=== PATIENT | female | born 1945 | race Caucasian/White ===

== ENCOUNTER 2018-11-25 12:26 | Emergency (ER) | payer MEDICARE ==
[~2018-11-25] VITALS: Ht 154.9 cm; Wt 99.8 kg
--- OUTSIDE RECORDS SUMMARY | 2018-11-25 12:29 | XMS REPORT ---
Author Author [facility] Address Unknown Phone Unavailable Care Team Providers Care Diffuser Operator Name Role Phone ABELINO OCHOA PP Unavailable Ramila OCHOA Unavailable Unavailable Payers Payer Name Policy Type Policy Number Effective Date Expiration Date Problems This patient has no known problems. Allergies, Adverse Reactions, Alerts Allergy Name Allergy Type Status Severity Reaction(s) Onset Date Inactive Date Treating Clinician Comments diazepam DA Active U 2018-11-23 00:00:00 cefaclor DA Active U 2018-11-23 00:00:00 adhesive tape DA Active U 2018-11-23 00:00:00 diazepam DA Active U 2018-08-29 00:00:00 cefaclor DA Active U 2018-08-29 00:00:00 adhesive tape DA Active U 2018-08-29 00:00:00 diazepam DA Active U 2011-04-03 00:00:00 cefaclor DA Active U 2011-04-03 00:00:00 adhesive tape DA Active U 2011-04-03 00:00:00 Medications This patient has no known medications. Encounters Start Date/Time End Date/Time Encounter Type Admission Type Attending Clinicians Care Facility Care Department Encounter ID 2017-06-21 18:57:00 2017-06-21 18:57:00 Outpatient JOCE KEITH [facility] [id number] 2017-06-21 11:29:00 2017-06-21 11:29:00 Outpatient Petar [facility] [id number] 2017-04-17 22:06:00 2017-04-17 22:06:00 Outpatient JOCE KEITH [facility] [id number] 2017-03-27 10:09:00 2017-03-27 10:09:00 Outpatient C [facility] MED [id number] Results Test Description Test Time Test Comments Text Results Atomic Results Result Comments PROTHROMBIN TIME 2018-11-23 22:36:00 PROTHROMBIN TIME PATIENT (test code=PTP) 13.0 SECONDS 9.3-12.9 INTERNATIONAL NORMAL RATIO (test code=INR) 1.2 0.8-1.2 TARGET INR BY INDICATION Indication INR1. Prophylaxis of venous thrombosis 2.0 - 3.0 (orthopedic surgery), Prophylaxis of venous thrombosis (other than high-risk surgery), Treatment of Deep Vein Thrombosis/Pulmonary Embolism, Prevention of systemic embolism - Tissue heart valves, Acute Myocardial Infarction (to prevent systemic embolism), Valvular heart disease, Atrial Fibrillation, Bileaflet mechanical valve in aortic position.2. Mechanical prosthetic valves (high risk), 2.5 - 3.5 Presence of Lupus Anticoagulant or Antiphospholipid Antibodies, Prevention of systemic embolism - Acute Myocardial Infarction (to prevent recurrent infarct). THROMBOPLASTIN TIME [id number] 22:36:00* Test Item Value Reference Range Comments THROMBOPLASTIN TIME PARTIAL (test code=PTT) 29.0 Seconds 25.0-39.5 Therapeutic Range: 50.4 - 88.3 Seconds Effective 09/16/2018 [id number] 22:36:00* Test Item Value Reference Range Comments D-DIMER (test code=DDIMER) 380 ng/mlFEU <=500 THROMBOSIS AND/OR PULMONARY EMBOLISM AND THE CLINICAL CUT- OFF VALUE FOR EXCLUSION (500 ng/mL FEU) OF THESE CONDITIONSIS VALIDATED BY THE PROFESSOR OF MARKETING OF THE METHOD. A NEGATIVE D-DIMER RESULT WHEN COMBINED WITH A CLINICALASSESSMENT OF LOW PRETEST PROBABILITY HAS BEEN SHOWN TO HAVEA HIGH NEGATIVE PREDICTIVE VALUE OF DVT OR PE. D-DIMER VALUES >500 ng/mL FEU ARE NOT DIAGNOSTIC FOR DVT, PEor DIC WITHOUT OTHER CONFIRMATORY TESTS AND APPROPRIATECLINICAL EUALUATIONS. COMPREHENSIVE METABOLIC [id number] 22:15:00* Test Item Value Reference Range Comments SODIUM (test code=NA) 140 mEq/L 134-147 POTASSIUM (test code=K) 4.4 mEq/L 3.4-5.0 CHLORIDE (test code=CL) 109 mEq/L 100-108 CARBON DIOXIDE (test code=CO2) 27 mEq/L 21-33 ANION GAP (test code=GAP) 8 0-20 GLUCOSE (test code=GLU) 98 mg/dL 70-110 BLOOD UREA NITROGEN (test code=BUN) 23 mg/dL 7-18 GLOMERULAR FILTRATION RATE (test code=GFR) 70.3 70-80 Units of measure=ml/min/1.73 m2 CREATININE (test code=CREAT) 0.8 mg/dL 0.6-1.3 TOTAL PROTEIN (test code=PROT) 7.1 g/dL 6.4-8.2 ALBUMIN (test code=ALB) 3.00 g/dL 3.4-5.0 CALCIUM (test code=CA) 8.7 mg/dL 8.0-10.5 BILIRUBIN TOTAL (test code=BILT) 0.20 mg/dL 0.0-1.0 SGOT/AST (test code=AST) 13 IUnit/L 15-37 SGPT/ALT (test code=ALT) 21 IUnit/L 15-65 ALKALINE PHOSPHATASE TOTAL (test code=ALKP) 81 IUnit/L 20-125 [id number] 22:15:00* Test Item Value Reference Range Comments LIPASE (test code=LIP) 197 IUnit/L 73-393 [id number] 22:15:00* Test Item Value Reference Range Comments MAGNESIUM (test code=MAG) 2.00 mg/dL 1.8-2.4 THYROID STIMULATING [id number] 22:15:00* Test Item Value Reference Range Comments THYROID STIMULATING HORMONE (test code=TSH) 1.78 0.42-5.47 Results in stephen-International Units/mL [id number] 22:15:00* Test Item Value Reference Range Comments TROPONIN-I (test code=TROPI) < 0.015 ng/mL 0.000-0.045 Negative: <=0.045 Positive: >=0.046 Correlation with serial results, other cardiac markers andclinical findings is necessary to determine the clinicalsignificance of this result. Results using different methodologies should not be comparedto one another as quantitative results may vary by method. B-TYPE NATRIURETIC [id number] 22:15:00* Test Item Value Reference Range Comments B-TYPE NATRIURETIC PEPTIDE (test code=BNP) 211.5 PG/ML 0-100 COMPREHENSIVE METABOLIC [id number] 22:10:00* Test Item Value Reference Range Comments SODIUM (test code=NA) 140 mEq/L 134-147 POTASSIUM (test code=K) 4.4 mEq/L 3.4-5.0 CHLORIDE (test code=CL) 109 mEq/L 100-108 CARBON DIOXIDE (test code=CO2) 27 mEq/L 21-33 ANION GAP (test code=GAP) 8 0-20 GLUCOSE (test code=GLU) 98 mg/dL 70-110 BLOOD UREA NITROGEN (test code=BUN) 23 mg/dL 7-18 GLOMERULAR FILTRATION RATE (test code=GFR) 70.3 70-80 Units of measure=ml/min/1.73 m2 CREATININE (test code=CREAT) 0.8 mg/dL 0.6-1.3 TOTAL PROTEIN (test code=PROT) 7.1 g/dL 6.4-8.2 ALBUMIN (test code=ALB) 3.00 g/dL 3.4-5.0 CALCIUM (test code=CA) 8.7 mg/dL 8.0-10.5 BILIRUBIN TOTAL (test code=BILT) 0.20 mg/dL 0.0-1.0 SGOT/AST (test code=AST) 13 IUnit/L 15-37 SGPT/ALT (test code=ALT) 21 IUnit/L 15-65 ALKALINE PHOSPHATASE TOTAL (test code=ALKP) 81 IUnit/L 20-125 [id number] 22:10:00* Test Item Value Reference Range Comments LIPASE (test code=LIP) 197 IUnit/L 73-393 [id number] 22:10:00* Test Item Value Reference Range Comments MAGNESIUM (test code=MAG) 2.00 mg/dL 1.8-2.4 THYROID STIMULATING [id number] 22:10:00* Test Item Value Reference Range Comments THYROID STIMULATING HORMONE (test code=TSH) 0.42-5.47 [id number] 22:10:00* Test Item Value Reference Range Comments TROPONIN-I (test code=TROPI) < 0.015 ng/mL 0.000-0.045 Negative: <=0.045 Positive: >=0.046 Correlation with serial results, other cardiac markers andclinical findings is necessary to determine the clinicalsignificance of this result. Results using different methodologies should not be comparedto one another as quantitative results may vary by method. CBC W/AUTO [id number] 21:44:00* Test Item Value Reference Range Comments WHITE BLOOD CELL (test code=WBC) 8.80 x10 3/uL 4.5-11.0 RED BLOOD CELL (test code=RBC) 3.93 x10 6/uL 3.54-5.02 HEMOGLOBIN (test code=HGB) 11.0 g/dL 11.0-15.0 HEMATOCRIT (test code=HCT) 35.6 % 33.0-45.0 MEAN CELL VOLUME (test code=MCV) 90.6 fL 81.0-99.0 MEAN CELL HGB (test code=MCH) 28.0 pg 27.0-33.0 MEAN CELL HGB CONCETRATION (test code=MCHC) 30.9 g/dL 33.0-37.0 RED CELL DISTRIBUTION WIDTH CV (test code=RDW) 16.2 % 11.5-14.5 RED CELL DISTRIBUTION WIDTH SD (test code=RDW-SD) 54.1 fL 37.0-54.0 PLATELET COUNT (test code=PLT) 271 x10 3/uL 150-400 MEAN PLATELET VOLUME (test code=MPV) 10.7 fL 7.0-9.0 NEUTROPHIL % (test code=NT%) 58.2 % 56.0-77.0 IMMATURE GRANULOCYTE % (test code=IG%) 0.5 % 0.0-2.0 LYMPHOCYTE % (test code=LY%) 25.3 % 14.0-32.0 MONOCYTE % (test code=MO%) 11.3 % 4.8-9.0 EOSINOPHIL % (test code=EO%) 3.9 % 0.3-3.7 BASOPHIL % (test code=BA%) 0.8 % 0.0-2.0 NUCLEATED RBC % (test code=NRBC%) 0.0 % 0-0 NEUTROPHIL # (test code=NT#) 5.13 x10 3/uL 2.0-7.6 IMMATURE GRANULOCYTE # (test code=IG#) 0.04 x10 3/uL 0.00-0.03 LYMPHOCYTE # (test code=LY#) 2.23 x10 3/uL 1.0-3.8 MONOCYTE # (test code=MO#) 0.99 x10 3/uL 0.1-0.8 EOSINOPHIL # (test code=EO#) 0.34 x10 3/uL 0.0-0.2 BASOPHIL # (test code=BA#) 0.07 x10 3/uL 0.0-0.2 NUCLEATED RBC # (test code=NRBC#) 0.00 x10 3/uL 0.0-0.1 MANUAL DIFF REQUIRED (test code=MDIFF) NO - XR CHEST 1 [id number] 21:23:00 FAX: Faina Rogers MD [phone] [place]: St: [facility] FAX: Ibrahima Vega MD [phone] Name: PAT COURTNEY [facility] : 1945 Age/S: 73/F [address] [place] [address] Unit #: [id number] Loc: [place] [address] Phys: Ibrahima Vital MD Acct: [id number] Dis Date: Status: REG ER PHONE #: [phone] Exam Date: 11/23/20182051 FAX #: [phone] Reason: SOB EXAMS: CPT CODE: [id number] XR CHEST 1 V [id number] XR CHEST 1 VIEW HISTORY: SOB. COMPARISON: 11/23/2009. FINDINGS: Cardiomegaly with mild vascular congestion. No consolidation or definite pleural fluid. Other than degenerative changes, the bones are intact. Old posterior rib fracture at the right mid chest. IMPRESSION: Cardiomegaly and mild vascular congestion. Correlate for evidence of CHF. SL: JAZZMINE at 2123 Reported and signed by: Bill Saenz M.D. CC: Faina Jones; Ibrahima Vital MD Technologist: BHUPINDER Jernigan RT(R) Trnscrd Date/Time/By: 11/23/2018 (2122) : By: HaydenLS1 Orig Print D/T: S: 11/23/2018 (2125) PAGE 1 Signed Report MG Bone Density Dexa [id number] 09:51:43Patient: PAT COURTNEY Date/Time04/14/2018 08:48 CSTReason for ExamC50.919ReportHISTORY: Screening, at risk for osteoporosisLocation code: I74HWWD: DEXA bone densitometry.COMPARISON: 03/27/2017TECHNIQUE: DEXA bone densitometry was performed of lumbar spine and right hip.FINDINGS:RIGHT PROXIMAL FEMUR:Total bone mineral density: 0.805 gm/cm 2; (previously 0.826gm/cm2)Total T-score: -1.23; (previously -1.05)T score in th e femoral neck: -2.64; (previously -2.91)LUMBAR SPINE:Total bone mineral density : 0.958 gm/cm2; (previously 1.017gm/cm2)Total T-score: -1.23; (previously -0.89) According to World Health Organization guidelines, bone mineral density as deter mined by T-score of -2.64 in the right femoral neck is in the range of osteoporo sis. Fracture risk is high.IMPRESSION: Bone mineral density is in the range of o steoporosis. Fracture risk is high and treatment, if not already being performed , should be instituted with followup DEXA scan recommended in one year. Since p rior exam bone mineral density has decreased in right femur and lumbar spine. World Health Org anization criteria:Normal: T-score at or above -1.0 standard deviationOsteopeni a: T-score between -1.0 and -2.5Osteoporosis: T-score at or below -2.5 Fi nal Dictated by: Avani Vee LDictated DT/TM: 04/15/2018 9:49 amSigned by: Avani Vee LSigned (Electronic Signature): 04/15/2018 9:51 amMG Mammo Digital Diagnostic [id number] 11:02:02Patient: PAT COURTNEY Date/Time04/14/2018 09:00 CSTReason for ExamC50.919ReportLocation R 16LEFT UNILATERAL DIAGNOSTIC MAMMOGRAM WITH CADHistory: 72 year-old female who presents for diagnostic mammogram. History of right mastectomy for breast cancer. Left breast reduction surgery as well.Left diagnostic mammogram with computer assisted diagnosis was performed and compared to multiple prior studies dating as far back as 05/21/2008 with most recent prior study dated 03/27/2017 .CC, exaggerated CC, ML AND MLO views of the the left breast were obtained and interpreted.There are scattered areas of fibroglandular density.No evidence of new dominant mass, asymmetry, architectural distortion or suspicious microcalcifications is seen. Stable scar along the 6:00 axis of the left breast.Impression:No mammographic evidence of malignancy.RECOMMENDATIONS: FOLLOW-UP MAMMOGRAM IN ONE YEAR IN THE ABSENCE OF CLINICAL FINDINGS.BI-RADS CATEGORY 2: Benign Final Dictated by: MD Sanchez Eniola FDictated DT/TM: 04/14/2018 10:55 amSigned by: MD Sanchez Eniola FSigned (Electronic Signature): 04/14/2018 11:02 am Comprehensive Metabolic [id number] 21:21:00* Test Item Value Reference Range Comments Sodium (test code=NA) 141 mmol/L 135-145 Potassium (test code=K) 4.0 mmol/L 3.5-5.1 Chloride (test code=CL) 102 mmol/L 98-105 Carbon Dioxide (test code=CO2) 29 mmol/L 22-29 Glucose (test code=GLU) 172 mg/dL 70-115 Blood Urea Nitrogen (test code=BUN) 15 mg/dL 8-23 Creatinine (test code=CREAT) 0.9 mg/dL 0.5-0.9 Calcium (test code=CA) 9.3 mg/dL 8.3-10.5 Prot Total (test code=TP) 7.1 g/dL 6.4-8.3 Albumin (test code=ALB) 4.0 g/dL 3.5-5.2 A/G Ratio (test code=AGRATIO) 1.3 Ratio Globulin (test code=GLOB) 3.1 2.9-3.1 Bili Total (test code=TBIL) 0.3 mg/dL 0.1-0.9 Alk Phos (test code=APHOS) 65 U/L 35-104 AST (test code=AST) 13 U/L 1-32 ALT (test code=ALT) 17 U/L 1-33 BUN/Creatinine Ratio (test code=BCRATIO) 16.7 Anion Gap (test code=AGAP) 10 mmol/L 7-16 Estimated GFR (test code=GFR) >60 mL/min/1.73m2 eGFR (estimated Glomerular Filtration Rate) is an estimated value,calculated from the patient's serum creatinine using the MDRD equation.It is NOT the patient's actual GFR. The eGFR provides a more clinicallyuseful measure of kidney disease than serum creatinine alone.This calculation takes sex and race into account, if the informationis provided. If the race is not provided, and the patient isAfrican-Norwegian, multiply by 1.212. If sex is not provided, and thepatient is female, multiply by 0.742. Results for patients <18 years ofage have not been validated by the MDRD study and should be interpretedwith caution.eGFR Result Interpretation:eGFR > or=60 is in the Normal RangeeGFR < 60 may mean kidney diseaseeGFR < 15 may mean kidney failureRanges recommended by the National Kidney Foundat ion,http://nkdep.nih.gov XR CHEST JOAQUIN Crisostomo/[id number] 12:15:26EXAM: Chest x-ray, 2 viewsLOCATION: [id number]: Chest radiograph 11/22/2014INDICATION: J01.90: ACUTE SINUSITIS, UNSPECIFIEDDISCUSSION:PA and lateral chest radiographs were submitted for interpretation.No consolidation, pleural effusion, or pneumothorax is seen. The cardiomediastinal silhouette is within normal limits. Mild aortic calcifications are present.No acute osseous abnormalities are identified. There is a stable linear density (catheter fragment?) over the anteriorthoracic inlet.IMPRESSION:No acute cardiopulmonary abnormalities.CA [id number] 14:58:00* Test Item Value Reference Range Comments CA 27.29 (test xxix=[id number]) 13.8 U/mL 0.0-38.6 Veronica Centaur/ACS methodology CA 15-3 (Serial Monitor)2017-04-18 11:32:00* Test Item Value Reference Range Comments Cancer Antigen 15-3 (test vlrq=LE658) 6.9 U/mL 1.0-25.1 Comprehensive Metabolic [id number] 22:57:00* Test Item Value Reference Range Comments Sodium (test code=NA) 140 mmol/L 135-145 Potassium (test code=K) 4.1 mmol/L 3.5-5.1 Chloride (test code=CL) 100 mmol/L 98-105 Carbon Dioxide (test code=CO2) 28 mmol/L 22-29 Glucose (test code=GLU) 152 mg/dL 70-115 Blood Urea Nitrogen (test code=BUN) 16 mg/dL 8-23 Creatinine (test code=CREAT) 0.9 mg/dL 0.5-0.9 Calcium (test code=CA) 10.1 mg/dL 8.3-10.5 Prot Total (test code=TP) 6.7 g/dL 6.4-8.3 Albumin (test code=ALB) 4.0 g/dL 3.5-5.2 A/G Ratio (test code=AGRATIO) 1.5 Ratio Globulin (test code=GLOB) 2.7 2.9-3.1 Bili Total (test code=TBIL) 0.3 mg/dL 0.1-0.9 Alk Phos (test code=APHOS) 74 U/L 35-104 AST (test code=AST) 13 U/L 1-32 ALT (test code=ALT) 18 U/L 1-33 BUN/Creatinine Ratio (test code=BCRATIO) 17.8 Anion Gap (test code=AGAP) 12 mmol/L 7-16 Estimated GFR (test code=GFR) >60 mL/min/1.73m2 eGFR (estimated Glomerular Filtration Rate) is an estimated value,calculated from the patient's serum creatinine using the MDRD equation.It is NOT the patient's actual GFR. The eGFR provides a more clinicallyuseful measure of kidney disease than serum creatinine alone.This calculation takes sex and race into account, if the informationis provided. If the race is not provided, and the patient isAfrican-Norwegian, multiply by 1.212. If sex is not provided, and thepatient is female, multiply by 0.742. Results for patients <18 years ofage have not been validated by the MDRD study and should be interpretedwith caution.eGFR Result Interpretation:eGFR > or=60 is in the Normal RangeeGFR < 60 may mean kidney diseaseeGFR < 15 may mean kidney failureRanges recommended by the National Kidney Foundat ion,http://nkdep.nih.gov XR BONE DENSITY (DXA)-[id number] 11:32:52BONE MINERAL DENSITY EXAM:LOCATION: 16 CLINICAL HISTORY: Postmenopausal. M81.8: OTHER OSTEOPOROSIS WITHOUTCURRENT PATHOLOGICAL FRACTURE.COMPARISON: Mar 23, 2016.Technique: Bone Mineral Density evaluation of the lumbar spine and righthip was performed using a DEXA system.FINDINGS:The results of the study expressed as bone mineral density (BMD) were asfollows:Scan performed: Lumbar spine BMD patient (gm/cm2): 1.017 T-score: -0.89WHO classification: Normal.Scan performed: Right femoral neck BMD patient (gm/cm2): 0.646 T-score: -2.9WHO classification: Osteoporotic.Scan performed: Total Right Hip BMD patient (gm/cm2): 0.826 T- score: -1.05WHO classification: Osteopenia.Since the prior exam, the bone bank examiner al density has slightly improved inthe lumbar spine that has decreased within e right hip.IMPRESSION:1. Osteoporosis according to WHO classification placing t he patient atsignificant increased risk of an osteoporotic fracture compared to theyoung adult population.World Health Organization (WHO) CriteriaNormal: T-scor e at or above -1 SDOsteopenia: T-score between -1 and -2.5 SDOsteoporosis: T-sco re at or below -2.5 SDMAM MAMMO DIAGNOSTIC UNI [id number]-[id number] 11:11:05 PROCEDURE: TERRI MAMMO DIAGNOSTIC UNI W/CAD-LEFTLOCATION : R 16HISTORY: C50.919: M ALIGNANT NEOPLASM OF UNSP SITE OF UNSPECIFIED FEMALEBREASTCOMPARISON: Mar 23 16, Mar 23, 2015, Mar 02, 2014 and Mar 02, 2013.Left CC, MLO, ML and exaggerated CC mammographic views were obtained.Computer aided detection (CAD) utilizing iC AD technology was performedand reviewed.FINDINGS: The breasts are composed of he terogeneously dense fibroglandular tissuewhich limits the sensitivity of mammogr aphy. The appearance of the fibroglandular tissue is unchanged. No dominantmass or suspicious microcalcification is present. IMPRESSION: There is no mammograph ic evidence of malignancy. Routine annualscreening mammogram is recommended.ACR BI-RADS CATEGORY: 2-BENIGN. RECOMMENDATION: FOLLOW UP MAMMOGRAM IN ONE YEAR.A . A negative x-ray report should not delay biopsy of a dominant orclinically rios spicious palpable mass.B. 8-14% of cancers are not identified by x-ray. This is becauseadenosis or dense breasts may obscure a breast cancer on mammography. Th is is why breast self-exam is important.C. A negative report may reinforce clin ical impression.D. False positive reports average 6-10%. Routine annual mammogr aphicfollow-up recommended.Comprehensive Metabolic [id number] 18:42:00* Test Item Value Reference Range Comments Sodium (test code=NA) 139 mmol/L 135-145 Potassium (test code=K) 4.6 mmol/L 3.5-5.1 Chloride (test code=CL) 102 mmol/L 98-105 Carbon Dioxide (test code=CO2) 26 mmol/L 22-29 Glucose (test code=GLU) 160 mg/dL 70-115 Blood Urea Nitrogen (test code=BUN) 16 mg/dL 8-23 Creatinine (test code=CREAT) 0.9 mg/dL 0.5-0.9 Calcium (test code=CA) 9.6 mg/dL 8.3-10.5 Prot Total (test code=TP) 7.3 g/dL 6.4-8.3 Albumin (test code=ALB) 4.0 g/dL 3.5-5.2 A/G Ratio (test code=AGRATIO) 1.2 Ratio Globulin (test code=GLOB) 3.3 2.9-3.1 Bili Total (test code=TBIL) 0.3 mg/dL 0.1-0.9 Alk Phos (test code=APHOS) 55 U/L 35-104 AST (test code=AST) 16 U/L 1-32 ALT (test code=ALT) 21 U/L 1-33 BUN/Creatinine Ratio (test code=BCRATIO) 17.8 Anion Gap (test code=AGAP) 11 mmol/L 7-16 Estimated GFR (test code=GFR) >60 mL/min/1.73m2 eGFR (estimated Glomerular Filtration Rate) is an estimated value,calculated from the patient's serum creatinine using the MDRD equation.It is NOT the patient's actual GFR. The eGFR provides a more clinicallyuseful measure of kidney disease than serum creatinine alone.This calculation takes sex and race into account, if the informationis provided. If the race is not provided, and the patient isAfrican-Norwegian, multiply by 1.212. If sex is not provided, and thepatient is female, multiply by 0.742. Results for patients <18 years ofage have not been validated by the MDRD study and should be interpretedwith caution.eGFR Result Interpretation:eGFR > or=60 is in the Normal RangeeGFR < 60 may mean kidney diseaseeGFR < 15 may mean kidney failureRanges recommended by the National Kidney Foundat ion,http://nkdep.nih.gov Comprehensive Metabolic [id number] 21:46:00* Test Item Value Reference Range Comments Sodium (test code=NA) 141 mmol/L 135-145 Potassium (test code=K) 4.2 mmol/L 3.5-5.1 Chloride (test code=CL) 99 mmol/L 98-105 Carbon Dioxide (test code=CO2) 28 mmol/L 22-29 Glucose (test code=GLU) 130 mg/dL 70-115 Blood Urea Nitrogen (test code=BUN) 22 mg/dL 8-23 Creatinine (test code=CREAT) 1.0 mg/dL 0.5-0.9 Calcium (test code=CA) 9.9 mg/dL 8.3-10.5 Prot Total (test code=TP) 6.6 g/dL 6.4-8.3 Albumin (test code=ALB) 3.9 g/dL 3.5-5.2 A/G Ratio (test code=AGRATIO) 1.4 Ratio Globulin (test code=GLOB) 2.7 2.9-3.1 Bili Total (test code=TBIL) 0.2 mg/dL 0.1-0.9 Alk Phos (test code=APHOS) 72 U/L 35-104 AST (test code=AST) 13 U/L 1-32 ALT (test code=ALT) 23 U/L 1-33 BUN/Creatinine Ratio (test code=BCRATIO) 22.0 Anion Gap (test code=AGAP) 14 mmol/L 7-16 Estimated GFR (test code=GFR) 58 mL/min/1.73m2 eGFR (estimated Glomerular Filtration Rate) is an estimated value,calculated from the patient's serum creatinine using the MDRD equation.It is NOT the patient's actual GFR. The eGFR provides a more clinicallyuseful measure of kidney disease than serum creatinine alone.This calculation takes sex and race into account, if the informationis provided. If the race is not provided, and the patient isAfrican-Norwegian, multiply by 1.212. If sex is not provided, and thepatient is female, multiply by 0.742. Results for patients <18 years ofage have not been validated by the MDRD study and should be interpretedwith caution.eGFR Result Interpretation:eGFR > or=60 is in the Normal RangeeGFR < 60 may mean kidney diseaseeGFR < 15 may mean kidney failureRanges recommended by the National Kidney Foundat ion,http://nkdep.nih.gov
--- OUTSIDE RECORDS SUMMARY | 2018-11-25 12:29 | XMS REPORT | Clinical Summary ---
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 Active multivitamin with Take 1 tablet 0 minerals tablet by mouth daily. 10/01/2019 Active triamcinolone (KENALOG) Apply 30 g 0 0.1 % creamIndications: topically 2 9 Dermatitis due to unknown (two) times a cause day. 10/30/2019 Active telmisartan (MICARDIS) 80 Take 1 tablet 30 tablet 2 MG tabletIndications: (80 mg total) 9 Essential hypertension by mouth daily. 10/30/2019 Active carvedilol (COREG) 12.5 Take 1 tablet 60 tablet 0 MG tabletIndications: (12.5 mg 9 Essential hypertension total) by mouth 2 (two) times a day with meals. 10/23/2018 Discontinued metoprolol succinate XL 0 (TOPROL-XL) 25 mg 24 hr 9 tablet 10/01/2018 Discontinued traMADol (ULTRAM) 50 mg 0 tablet 9 10/23/2018 Discontinued azilsartan Take 1 tablet 0 med-chlorthalidone by mouth. (EDARBYCLOR) 40-12.5 mg tablet 10/31/2018 traMADol (ULTRAM) 50 mg Take 1 tablet 60 tablet 0 tabletIndications: (50 mg total) 9 Primary osteoarthritis of by mouth left knee every 8 (eight) hours as needed for moderate pain for up to 30 days. 10/30/2018 Discontinued azilsartan Take 1 tablet 30 tablet 2 med-chlorthalidone 40-25 by mouth 9 mg tablet daily. 10/30/2018 Discontinued metoprolol succinate XL Take 1 tablet 30 tablet 2 (TOPROL XL) 50 mg 24 hr (50 mg total) 9 tablet by mouth daily for 90 days. Active Problems Problem Noted Date BMI 40.0-44.9, adult 10/01/2018 Encounters Care Team Description Date Type Specialty Radha Turcios 11/25/2018 Telephone Family Medicine Rica Burton RN 11/24/2018 Telephone Access Rica Burton RN 11/24/2018 Nurse Triage Access Faina Jones MD 10/31/2018 Telephone Family Medicine Faina Jones MD Essential hypertension (Primary Dx) 10/30/2018 Office Visit Family Medicine Faina Jones MD 10/29/2018 Telephone Family Medicine SamaniegoElba Ch MA 10/23/2018 Refill Family Medicine Faina Jones MD Essential hypertension (Primary Dx); Primary osteoarthritis of left knee; Age-related osteoporosis without current pathological fracture; Dermatitis due to unknown cause 10/01/2018 Office Visit Family Medicine after 11/24/2017 Family History Medical History Relation Name Comments Hernia Father Uterine cancer Mother Relation Name Status Comments Father Mother Social History Date Tobacco Use Types Packs/Day Years Used Former Smoker Smokeless Tobacco: Never Used Alcohol Use Drinks/Week oz/Week Comments Yes 0 Cans of 0.0 2 time a yr beer 0 Shots of liquor 0 Glasses of wine 0 Standard drinks or equivalent Sex Assigned at Date Recorded Not on file Industry Job Start Date Occupation Not on file Not on file Not on file Travel End Travel History Travel Start No recent travel history available. Last Filed Vital Signs Time Taken Vital Sign Reading 10/30/2018 2:17 PM CDT Blood Pressure 152/58 10/30/2018 1:33 PM CDT Pulse 51 10/30/2018 1:33 PM CDT Temperature 36.7 C (98.1 F) 10/30/2018 1:33 PM CDT Respiratory Rate 18 10/30/2018 1:33 PM CDT Oxygen Saturation 96% - Inhaled Oxygen - Concentration 10/30/2018 1:33 PM CDT Weight 99 kg (218 lb 3.2 oz) 10/30/2018 1:33 PM CDT Height 154.9 cm (5' 1") 10/30/2018 1:33 PM CDT Body Mass Index 41.23 Plan of Treatment Care Team Description Date Type Specialty Faina Jones MD [address] [place] [address] [place] [id number] [phone] 11/26/2018 Office Visit Family Medicine Health Maintenance Due Date Last Done Comments INFLUENZA VACCINE 01/01/2019 COLONOSCOPY SCREENING 03/06/2019 Postponed from 1995 (Patient Refused) SHINGLES VACCINES (#1) 04/03/2019 Postponed from 1995 (Patient Refused) 65+ PNEUMOCOCCAL VACCINE 05/08/2019 Postponed from 2010 (1 of 2 - PCV13) (Patient Refused) BREAST CANCER SCREENING 05/06/2020 05/06/2018 Results Not on fileafter 11/24/2017 Insurance Type Payer Benefit Subscriber ID Effective Phone Address Plan / Dates Group Medicare MEDICARE MEDICARE xxxxxxxxxxx 2012- [place], PART A AND Present [place] Commercial AAR AAR xxxxxxxxxxx [id number] SUPPLEMENT resent Advance Directives Patient has advance care planning documents on file. For more information, clarence garvin contact: Benoit Ibarra [address] [place] [address]
[2018-11-25] MEDS ORDERED: HYDRALAZINE HCL 20 MG/ML VIAL IV STA (12:48)
--- NOTE | 2018-11-25 13:43 | Diagnostic Imaging Report ---
CT BRAIN WO HISTORY: High blood pressure COMPARISON: None. Technique: Noncontrast axial scans were obtained from skull base to the vertex. Coronal and sagittal reconstructions obtained from the axial data. One or more of the following dose reduction techniques were used: Automated exposure control, adjustment of the mA and/or kV according to patient size, and/or utilization of iterative reconstruction technique. DISCUSSION: Scalp/Skull: Unremarkable. Brain sulci: Mildly prominent. Ventricles: Compensatory dilatation. Extra-axial spaces: No masses or fluid collections. Carotid siphon calcifications are present. Parenchyma: Mild bilateral deep white matter hypodensity is likely chronic microvascular ischemic change. Associated old bilateral jansen radiata and right cerebellar lacunar infarcts are present. Left parieto-occipital convexity encephalomalacia is likely from remote infarct. Otherwise, no masses, hemorrhage, or large vascular territory acute infarct. Dural sinuses: No abnormal densities. Sellar/Suprasellar region: Intact. Skull base: Intact. Incidental findings: Both ocular lenses are thinned. IMPRESSION: 1. No acute intracranial abnormalities. 2. Mild supratentorial chronic microvascular ischemic change. Mild generalized cerebral volume loss. 3. 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 4. 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 Signed by: Dr. Luis Fernando Ramirez M.D. on 11/25/2018 1:40 PM
--- NOTE | 2018-11-25 13:50 | Diagnostic Imaging Report ---
EXAM: CHEST SINGLE (PORTABLE), PA and lateral DATE: 11/25/2018 Time stamp on exam: 1:04 PM INDICATION: Elevated blood pressure and chest pain COMPARISON: None FINDINGS: LINES/TUBES: A portion of a wire overlies the mediastinum. This is uncertain whether this is external to the patient. It does follow a course they could be within the innominate vein. LUNGS: No consolidations or edema. PLEURA: No effusions or pneumothorax. HEART AND MEDIASTINUM: Normal size and contour. BONES AND SOFT TISSUES: No acute findings. IMPRESSION: No acute thoracic abnormality. Signed by: Dr. Daryl Antoine DO on 11/25/2018 1:46 PM
[2018-11-25 14:27] LABS: BASOPHILS # (AUTO) 0.1 (0.0-0.1); BASOPHILS % 0.6 % (0.0-1.0); EOSINOPHILS # (AUTO) 0.2 (0.0-0.4); EOSINOPHILS % 2.6 % (0.0-6.0); HEMATOCRIT 34.4 % (34.2-44.1); HEMOGLOBIN 10.9 g/dL (12.0-16.0); LYMPHOCYTES # (AUTO) 1.8 (1.0-3.2); LYMPHOCYTES % 21.5 % (18.0-39.1); MEAN CORPUSCULAR HGB CONC 31.7 g/dL (31-35); MEAN CORPUSCULAR VOLUME 88.4 fL (81-99); MONOCYTES # (AUTO) 0.9 (0.2-0.8); NEUTROPHILS # (AUTO) 5.4 (2.1-6.9); NEUTROPHILS % 64.1 % (38.7-80.0); PLATELET COUNT 265 x10e3/uL (140-360); RED BLOOD COUNT 3.89 x10e6/uL (3.6-5.1)
[2018-11-25 14:33] LABS: INR 1.05; PROTHROMBIN TIME 14.2 seconds (11.9-14.5)
[2018-11-25 14:34] LABS: PARTIAL THROMBOPLASTIN TIME 27.5 seconds (23.8-35.5)
[2018-11-25 14:45] LABS: ALANINE AMINOTRANSFERASE 16 IU/L (0-55); ALBUMIN 3.1 g/dL (3.5-5.0); ALBUMIN/GLOBULIN RATIO 1.1 (0.8-2.0); ALKALINE PHOSPHATASE 77 IU/L (40-150); BLOOD UREA NITROGEN 13 mg/dL (7-26); BUN/CREATININE RATIO 16 (6-25); CALCIUM 8.7 mg/dL (8.4-10.2); CARBON DIOXIDE 23 mmol/L (22-29); CHLORIDE 107 mmol/L (98-107); CREATINE KINASE 56 IU/L (29-168); EST GLOMERULAR FILTRATION RATE > 60 ML/MIN (60-); GLUCOSE 121 mg/dL (74-118); SODIUM 139 mmol/L (136-145)
--- NOTE | 2018-11-25 16:05 | NUR ---
pt took own dose of hydralazine; christian de luna,oracle dba
[2018-11-25 16:12] LABS: BILIRUBIN,URINE NEGATIVE (NEGATIVE); CLARITY,URINE CLEAR (CLEAR); COLOR,URINE YELLOW (YELLOW); KETONES,URINE NEGATIVE (NEGATIVE); LEUKOCYTE ESTERASE ,URINE NEGATIVE (NEGATIVE); NITRITE,URINE NEGATIVE (NEGATIVE); PROTEIN,URINE DIPSTICK NEGATIVE (NEGATIVE); URINE UROBILINOGEN 0.2 mg/dL (0.2 - 1)
[2018-11-25 16:28] LABS: BACTERIA,URINE MANY /HPF; EPITHELIAL CELLS,URINE MODERATE /LPF
== END 2018-11-25 17:28 | disposition home or self-care (01) ==
LOC: ER 12:26
DX: I16.9 Hypertensive crisis, unspecified (principal); I10 Essential (primary) hypertension; D64.9 Anemia, unspecified; R00.1 Bradycardia, unspecified
CPT/HCPCS: 36415; 70450; 71045; 80053; 81001; 82550; 82553; 83735; 83880; 84484; 85025; 85610; 85730; 93005; 99284